=== PATIENT | female | born 1995 | race Caucasian/White ===

== ENCOUNTER 2017-01-17 19:36 | Emergency (ER) | payer BC ==
[~2017-01-17] VITALS: Ht 162.6 cm; Wt 71.2 kg
[2017-01-17] MEDS ORDERED: hydrALAZINE INJ 20 MG/ML VIAL IV ONE (20:30)
[2017-01-17 20:50] VITALS: BP 131/81
[2017-01-17 21:06] VITALS: BP 119/84
[2017-01-17 21:26] LABS: BASO % 0.2 % (0.0-1.0); EOS # 0.1 K/mm3 (0.0-0.50); EOS % 1.4 % (0.0-3.0); LARGE UNSTAINED CELL # 0.3 K/mm3 (0.0-0.4); LYMPH # 1.6 K/mm3 (1.5-6.5); LYMPH % 14.6 % (24.0-44.0); MEAN CORPUSCULAR HEMOGLOBIN 25.3 pg (27.0-33.0); MEAN CORPUSCULAR HGB CONC 32.3 g/dl (32.0-36.5); MEAN CORPUSCULAR VOLUME 78.2 fl (80.0-96.0); MONO # 0.9 K/mm3 (0.0-0.8); MONO % 9.3 % (0.0-5.0); NEUTROPHILS # 6.6 K/mm3 (1.8-7.7); NEUTROPHILS % 71.6 % (36.0-66.0); PLATELET COUNT, AUTOMATED 321 k/mm3 (150-450); RED CELL DISTRIBUTION WIDTH 14.2 % (11.5-14.5); WHITE BLOOD COUNT 9.2 K/mm3 (4.0-10.0)
[2017-01-17 21:28] LABS: ALBUMIN 2.8 GM/DL (3.2-5.2); ALKALINE PHOSPHATASE 163 U/L (45-117); ALT/SGPT 17 U/L (12-78); ANION GAP 10 MEQ/L (8-16); AST/SGOT 24 U/L (15-37); BILIRUBIN,DIRECT < 0.1 MG/DL (0.0-0.2); BILIRUBIN,TOTAL 0.3 MG/DL (0.2-1.0); BLOOD UREA NITROGEN 5 MG/DL (7-18); CALCIUM LEVEL 8.4 MG/DL (8.5-10.1); CARBON DIOXIDE LEVEL 22 MEQ/L (21-32); CHLORIDE LEVEL 107 MEQ/L (98-107); CREATININE FOR GFR 0.76 MG/DL (0.55-1.02); GLOMERULAR FILTRATION RATE > 60.0 (>60); GLUCOSE, FASTING 105 MG/DL (70-105); POTASSIUM SERUM 3.8 MEQ/L (3.5-5.1); SODIUM LEVEL 139 MEQ/L (136-145); TOTAL PROTEIN 6.3 GM/DL (6.4-8.2)
--- NOTE | 2017-01-18 11:06 | ECGEPIP ---
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
== END 2017-01-17 21:50 | disposition admitted as inpatient to this hospital (09) ==
LOC: M ED 21:17
DX: O99.513 Diseases of the respiratory system complicating pregnancy, third trimester (principal); R00.2 Palpitations; O16.3 Unspecified maternal hypertension, third trimester; I10 Essential (primary) hypertension; Z3A.36 36 weeks gestation of pregnancy

== ENCOUNTER 2017-01-17 22:23 | Outpatient (CLI) | payer BC ==
[2017-01-17 22:48] VITALS: BP 111/68
[2017-01-17 23:04] VITALS: BP 112/68
[2017-01-17 23:19] VITALS: BP 107/65
[2017-01-17 23:34] VITALS: BP 111/73
[2017-01-17 23:49] VITALS: BP 110/68
[2017-01-18 00:25] VITALS: BP 100/56
[2017-01-18 00:55] VITALS: BP 101/62
== END 2017-01-18 01:20 | disposition home or self-care (01) ==
LOC: M LDO 22:23
PROVIDERS: ATTEND Specialist
DX: O26.893 Other specified pregnancy related conditions, third trimester (principal); Z3A.36 36 weeks gestation of pregnancy; R00.2 Palpitations; R06.02 Shortness of breath